=== PATIENT | female | born 1970 | race Caucasian/White ===

== ENCOUNTER 2016-09-10 15:00 | Emergency (ER) | payer OTHER ==
[2016-09-10 15:00] VITALS: BMI 44.2
[2016-09-10 15:04] VITALS: BP 112/78; PULSE 99; RESP 22; TEMP 99.2; O2SAT 98
[2016-09-10] MEDS ORDERED: Sodium Chloride 0.9% 1,000 ML IV ONE (15:15)
[2016-09-10] MEDS ORDERED: Sodium Chloride 0.9% 1,000 ML ONE (15:28)
[2016-09-10] MEDS ORDERED: Albuterol-Ipratrop 3 mg / 0.5 (3 ml) UD ONE ×2 (15:28→15:55)
--- NOTE | 2016-09-10 15:29 | C.PDOC ---
History Of Present Illness 46 year old female presents to the ED with complaints of "not feeling well," productive cough with white sputum, and chest discomfort with cough for the last four days. Patient notes a history of asthma and was seen by PMD and given albuterol, nebulizer, cough medicine, and zithromax with no relief, and still has two days left of antibiotics. She denies any nausea, vomiting, diarrhea, or any other complaints at this time. Time Seen by Provider: 09/10/16 15:22 Chief Complaint (Nursing): Shortness Of Breath History Per: Patient History/Exam Limitations: no limitations Onset/Duration Of Symptoms: Days Current Symptoms Are (Timing): Still Present Initiating Event: Upper Respiratory Illness Associated Symptoms: Productive Cough (white sputum). denies: Fever, Chills, Sweating Past Medical History Reviewed: Historical Data, Nursing Documentation, Vital Signs Vital Signs: Last Vital Signs Temp 99.2 F 09/10/16 15:03 Pulse 99 H 09/10/16 15:03 Resp 22 09/10/16 15:18 BP 112/78 09/10/16 15:03 Pulse Ox 98 09/10/16 16:36 - Medical History PMH: Asthma Surgical History: Denies: Pacemaker - [facility] Procedures IMMOBILIZ/WOUND ATTN NEC (01/11/14) RETROGRADE PYELOGRAM (12/12/13) Family History: States: Unknown Family Hx - Social History Hx Tobacco Use: Yes Hx Alcohol Use: No Hx Substance Use: No - Immunization History Hx Tetanus Toxoid Vaccination: No Hx Influenza Vaccination: No Hx Pneumococcal Vaccination: No Review Of Systems Constitutional: Positive for: Chills, Malaise. Negative for: Fever, Weakness Cardiovascular: Positive for: Other (chest discomfort with cough). Negative for : Chest Pain, Palpitations Respiratory: Positive for: Cough, Pleuritic Pain, Sputum Gastrointestinal: Negative for: Nausea, Vomiting, Abdominal Pain, Diarrhea Neurological: Negative for: Weakness, Headache, Dizziness Physical Exam - Physical Exam Appears: Non-toxic, No Acute Distress Skin: Normal Color, Warm, Dry, No Rash Head: Atraumatic, Normacephalic Eye(s): bilateral: Normal Inspection, EOMI Ear(s): Bilateral: Normal Nose: Normal, No Flaring Oral Mucosa: Moist Throat: Normal, No Erythema, No Exudate, No Drooling Neck: Normal ROM Cardiovascular: Rhythm Regular, No Murmur Respiratory: Normal Breath Sounds, No Accessory Muscle Use, No Rhonchi, Wheezing (mild expiratory ), Other (poor effort) Gastrointestinal/Abdominal: Normal Exam, Soft, No Tenderness, No Distention, No Guarding Extremity: Normal ROM, No Deformity, No Swelling Neurological/Psych: Oriented x3, Normal Speech ED Course And Treatment - Laboratory Results Result Diagrams: 09/10/16 15:44 09/10/16 15:44 Lab Interpretation: No Acute Changes O2 Sat by Pulse Oximetry: 98 Pulse Ox Interpretation: Normal - Radiology CXR: Interpreted by Me, Viewed By Me, Read By Radiologist CXR Interpretation: Yes: No Acute Disease Medical Decision Making Medical Decision Makin y.o female with cough and pleuritic pain for 4 days already taking zithromax. Exam showed mild expiratory wheeze. Labs drawn and patient treated with solu-medrol and duonebs. CXR reviewed showing no acute disease and labs were unremarkable, no leukocytosis and flu was negative. Patient reevaluated and is feeling better. She is not febrile and in no respiratory distress. Lungs clear bilaterally. Patient given follow up instructions. Instructed to return to ER if symptoms worsen or new symptoms arise. Disposition Counseled Patient/Family Regarding: Diagnosis, Need For Followup, Rx Given - Disposition Referrals: [facility] [Outside] [facility] [Outside] Disposition: HOME/ ROUTINE Disposition Time: 16:28 Condition: STABLE Additional Instructions: Your prescriptions were sent to [facility] take prednisone daily and cough medicine as needed Follow up with your primary doctor Prescriptions: Promethazine DM [Phenergan DM Syrup] 5 ml PO Q8 PRN #3 oz PRN Reason: Cough Prednisone 50 mg PO DAILY #5 tablet Instructions: Acute Bronchitis (ED) - POA Present On Arrival: None - Clinical Impression Clinical Impression: Bronchitis
[2016-09-10] MEDS: Albuterol-Ipratrop 3 mg / 0.5 (3 ml) UD IH SCH ×2 (15:43→15:56)
[2016-09-10 15:50] LABS: BASO % 0.3 % (0.0-2.0); EOS % 0.1 % (0.0-4.0); HEMATOCRIT 39.2 % (34.0-47.0); LYMPH # 0.9 K/uL (1.0-4.3); LYMPH % 20.1 % (20.0-40.0); MEAN CELL VOLUME 87.5 fL (81.0-99.0); MEAN CORPUSCULAR HEMOGLOBIN 28.6 pg (27.0-31.0); MEAN CORPUSCULAR HGB CONC 32.7 g/dL (33.0-37.0); MONO # 0.6 K/uL (0.0-0.8); MONO % 12.9 % (0.0-10.0); RED CELL DISTRIBUTION WIDTH 15.1 % (11.5-14.5); WHITE BLOOD COUNT 4.6 K/uL (4.8-10.8)
[2016-09-10 15:55] LABS: CHLORIDE 96 mmol/L (98-107)
[2016-09-10 15:56] LABS: POTASSIUM 3.2 mmol/L (3.6-5.2); SODIUM 137 mmol/L (132-148)
[2016-09-10 15:58] LABS: ALB/GLOB RATIO 1.3 (1.0-2.1); ALKALINE PHOSPHATASE 53 U/L (38-126); AST/SGOT 30 U/L (14-36); BILIRUBIN,TOTAL 0.6 mg/dL (0.2-1.3); BLOOD UREA NITROGEN 15 mg/dL (7-17); CARBON DIOXIDE 29 mmol/L (22-30); GFR AFRICAN-AMERICAN > 60; TOTAL PROTEIN 6.8 g/dL (6.3-8.3)
[2016-09-10 15:59] LABS: ALT/SGPT 20 U/L (9-52); CALCIUM 8.3 mg/dl (8.6-10.4); GLUCOSE,RANDOM 69 mg/dL (65-105)
--- NOTE | 2016-09-10 16:04 | RAD ---
HISTORY: SOB COMPARISON: None available. TECHNIQUE: Chest PA and lateral FINDINGS: Examination limited by habitus. LUNGS: No focal consolidation. Please note that chest x-ray has limited sensitivity for the detection of pulmonary masses. PLEURA: No significant pleural effusion identified. No definite pneumothorax . CARDIOVASCULAR: The cardiomediastinal silhouette appears within normal limits of size. OSSEOUS STRUCTURES: No acute osseous abnormality identified. VISUALIZED UPPER ABDOMEN: Unremarkable. OTHER FINDINGS: None. IMPRESSION: No focal consolidation, significant pleural effusion, or definite pneumothorax identified.
== END 2016-09-10 16:57 | disposition home or self-care (01) ==
LOC: C.ER 15:00
DX: J40 Bronchitis, not specified as acute or chronic (principal)
CPT/HCPCS: 71020; 80053; 83880; 85025; 87804; 96361; 96374; 99284; J2930; J7040

== ENCOUNTER 2016-09-20 07:42 | Day surgery (SDC) | payer OTHER ==
[2016-09-20 08:37] VITALS: BMI 25.0
[2016-09-20] MEDS ORDERED: Propofol 10 mg/ml Inj (20 ML) ONE (09:40)
[2016-09-20] MEDS ORDERED: Pantoprazole 40 mg EC Tab PO STA (09:42)
--- NOTE | 2016-09-20 09:42 | CP.SDSHP ---
Same Day Surgery H & P - History Proposed Procedure: EGD Pre-Op Diagnosis: SEE NOTES - Previous Medical/Surgical History Pulmonary: Asthma, Bronchitis Misc: Other Pain: 4.Moderate Pain - Allergies Allergies: Allergies hepatitis B virus vaccine Allergy (Verified 09/10/16 15:17) latex Allergy (Verified 09/10/16 15:17) cigarrettes Allergy (Intermediate, Uncoded 09/10/16 15:17) CONGESTION CHICKEN Allergy (Uncoded 09/10/16 15:17) RASH flu vaccine Allergy (Uncoded 09/10/16 15:17) TOMATOES Allergy (Uncoded 09/10/16 15:17) RASH - Physical Exam General Appearance: N Vital Signs: Vital Signs 09/20/16 08:49 Temperature 98.2 F Pulse Rate 80 Respiratory 17 Rate Blood Pressure 112/73 O2 Sat by Pulse 98 Oximetry Mental Status: Alert & Oriented x3 Neuro: WNL Heart: WNL Lungs: Other GI: WNL - {Optional Preform as Required} Breast: WNL Abdomen: Other Rectal: Other Integument: WNL : WNL Ortho: Other ENT: WNL - Impression Pt. Evaluated Today:Candidate for Anesthesia & Procedure: Yes - Date & Time Time: 09:42 Short Stay Discharge - Short Stay Discharge Admitting Diagnosis/Reason for Visit: FUNCTIONAL DYSPEPSIA Disposition: HOME/ ROUTINE
[2016-09-20 10:32] VITALS: RESP 12; TEMP 97.4
[2016-09-20 11:14] VITALS: BP 120/59; PULSE 61; O2SAT 98
== END 2016-09-20 11:13 | disposition home or self-care (01) ==
LOC: C.ENDO 07:42
PROVIDERS: ATTEND Specialist
DX: K21.0 Gastro-esophageal reflux disease with esophagitis (principal); K29.50 Unspecified chronic gastritis without bleeding; K44.9 Diaphragmatic hernia without obstruction or gangrene
CPT/HCPCS: 43239; 84703; 88305; 88342; J2001; J2704

== ENCOUNTER 2016-12-07 12:56 | Emergency (ER) | payer MEDICAID, OTHER ==
[2016-12-07 12:57] VITALS: BMI 25.0
[2016-12-07 13:09] VITALS: BP 105/68; PULSE 74; RESP 16; TEMP 98.2; O2SAT 98
--- NOTE | 2016-12-07 13:11 | C.PDOC ---
History Of Present Illness 46 yr old female presents to the ER stating she was seen yesterday for a itchy rash, was given a prescription but was not able to fill it because she can't afford it. Patient reports of diffuse itchiness. Denies fever, chest pain, sob, weakness or numbness. Time Seen by Provider: 12/07/16 13:10 Chief Complaint (Nursing): Abnormal Skin Integrity History Per: Patient History/Exam Limitations: no limitations Onset/Duration Of Symptoms: Days Past Medical History Reviewed: Historical Data, Nursing Documentation, Vital Signs Vital Signs: Last Vital Signs Temp 98.2 F 12/07/16 13:05 Pulse 74 12/07/16 13:05 Resp 16 12/07/16 13:05 BP 105/68 12/07/16 13:05 Pulse Ox 98 12/07/16 13:26 - Medical History PMH: Asthma - [facility] Procedures IMMOBILIZ/WOUND ATTN NEC (01/11/14) RETROGRADE PYELOGRAM (12/12/13) Family History: States: No Known Family Hx - Social History Hx Tobacco Use: Yes Hx Alcohol Use: No Hx Substance Use: No - Immunization History Hx Tetanus Toxoid Vaccination: No Hx Influenza Vaccination: No Hx Pneumococcal Vaccination: No Review Of Systems Except As Marked, All Systems Reviewed And Found Negative. Constitutional: Negative for: Fever Cardiovascular: Negative for: Chest Pain Respiratory: Negative for: Shortness of Breath Skin: Positive for: Rash (Diffuse itchy rash ) Neurological: Negative for: Weakness, Numbness Physical Exam - Physical Exam Appears: Non-toxic, No Acute Distress Skin: Warm, Dry, No Rash, No Ecchymosis Head: Atraumatic, Normacephalic Chest: Symmetrical, No Tenderness Cardiovascular: Rhythm Regular, No Murmur Respiratory: Normal Breath Sounds, No Rales, No Rhonchi, No Stridor, No Wheezing Extremity: Normal ROM, No Swelling Neurological/Psych: Oriented x3, Normal Speech, Normal Motor ED Course And Treatment O2 Sat by Pulse Oximetry: 98 (RA) Pulse Ox Interpretation: Normal Progress Note: Patient was given Rx for benadryl and pepcid. Patient was offered Prednisone in ED but refused, stating it causes insomnia. Medical Decision Making Medical Decision Making: PLAN: * Benadryl PO * Pepcid PO Disposition - Disposition Disposition: HOME/ ROUTINE Disposition Time: 13:22 Condition: STABLE Additional Instructions: Follow up with PMD within 1-2 days. Return to ED if feel worse. Prescriptions: DiphenhydrAMINE [Benadryl] 25 mg PO .Q4-6 H #30 cap Famotidine [Pepcid] 20 mg PO BID #20 tab Instructions: Itchy Skin (ED) - Clinical Impression Clinical Impression: Generalized pruritus - PA / BOOKY / Resident Statement MD/DO has reviewed & agrees with the documentation as recorded. - Scribe Statement The provider has reviewed the documentation as recorded by the Scribe Tiesha Orlando All medical record entries made by the Aubreyibmaria victoria were at my direction and personally dictated by me. I have reviewed the chart and agree that the record accurately reflects my personal performance of the history, physical exam, medical decision making, and the department course for this patient. I have also personally directed, reviewed, and agree with the discharge instructions and disposition.
== END 2016-12-07 13:31 | disposition home or self-care (01) ==
LOC: C.ER 12:56
DX: L29.8 Other pruritus (principal)

== ENCOUNTER 2016-12-21 14:26 | Emergency (ER) | payer MEDICAID, OTHER ==
[2016-12-21 14:27] VITALS: BMI 25.0
[2016-12-21 14:34] VITALS: RESP 18; TEMP 98.2
--- NOTE | 2016-12-21 15:29 | RAD ---
PROCEDURE: Left Foot Radiographs. HISTORY: great toe injury, pain to 1st metatarsal COMPARISON: None. FINDINGS: BONES: There is no acute displaced fracture or bone destruction. Bone alignment and mineralization are normal. There is a prominent plantar calcaneal spur. JOINTS: Normal. SOFT TISSUES: Normal. OTHER FINDINGS: None. IMPRESSION: No acute fracture or dislocation.
--- NOTE | 2016-12-21 16:10 | C.PDOC ---
History Of Present Illness 46 yr old female presents to the ER stating she was walking up the stairs and missed a step, banging her left great toe 4 days ago. Patient states she is able to walk but the pain continues. Patient denies leg pain, back pain, weakness or numbness. Time Seen by Provider: 12/21/16 14:52 Chief Complaint (Nursing): Lower Extremity Problem/Injury History Per: Patient History/Exam Limitations: no limitations Onset/Duration Of Symptoms: Days (4) Current Symptoms Are (Timing): Still Present Past Medical History Reviewed: Historical Data, Nursing Documentation, Vital Signs Vital Signs: Last Vital Signs Temp 98.2 F 12/21/16 14:33 Pulse 68 12/21/16 16:25 Resp 18 12/21/16 16:25 BP 115/76 12/21/16 16:25 Pulse Ox 97 12/21/16 16:25 - Medical History PMH: Asthma - [facility] Procedures IMMOBILIZ/WOUND ATTN NEC (01/11/14) RETROGRADE PYELOGRAM (12/12/13) Family History: States: No Known Family Hx - Social History Hx Tobacco Use: Yes Hx Alcohol Use: No Hx Substance Use: No - Immunization History Hx Tetanus Toxoid Vaccination: No Hx Influenza Vaccination: No Hx Pneumococcal Vaccination: No Review Of Systems Except As Marked, All Systems Reviewed And Found Negative. Musculoskeletal: Positive for: Other ((+) Left great toe pain ). Negative for: Leg Pain, Foot Pain Neurological: Negative for: Weakness, Numbness Physical Exam - Physical Exam Appears: Non-toxic, No Acute Distress Skin: Warm, Dry, No Rash Head: Atraumatic, Normacephalic Extremity: Normal ROM, Tenderness (Left Great Toe - Tenderness to the planter aspect and mild tender planter aspect of first metatarsel region. ), No Calf Tenderness, Capillary Refill (<2), No Swelling Pulses: Left Dorsalis Pedis: Normal, Right Dorsalis Pedis: Normal Neurological/Psych: Oriented x3, Normal Speech, Normal Motor, Normal Sensation Gait: Steady ED Course And Treatment O2 Sat by Pulse Oximetry: 100 (RA ) Pulse Ox Interpretation: Normal - Other Rad X-Ray - Left Foot X-Ray: Viewed By Me, Read By Radiologist Interpretation: PROCEDURE: Left Foot Radiographs. HISTORY: great toe injury, pain to 1st metatarsal. COMPARISON: None. FINDINGS: BONES: There is no acute displaced fracture or bone destruction. Bone alignment and mineralization are normal. There is a prominent plantar calcaneal spur. JOINTS : Normal. SOFT TISSUES: Normal. OTHER FINDINGS: None. IMPRESSION: No acute fracture or dislocation. Medical Decision Making Medical Decision Making: PLAN: * X-Ray - Left Foot * Tylenol PO Xray of the foot is negative. The patient reports that her Soap Mixer is Dr. Duff and will follow up this week. Case was discussed with Podiatry resident who agrees with plan to discharge the patient with outpatient follow up. Patient was offered Ortho shoe but refuses. Disposition - Disposition Referrals: Benny Duff DPM [Staff Provider] - Disposition: HOME/ ROUTINE Disposition Time: 16:07 Condition: GOOD Additional Instructions: Follow up with the medical doctor within 1-2 days. Return if worsened. Prescriptions: Naproxen [Naprosyn] 500 mg PO BID #20 tab Instructions: Foot Contusion (ED) Forms: [employer] (Irish) - Clinical Impression Clinical Impression: Toe contusion - PA / LUMBER INSPECTOR / Resident Statement MD/DO has reviewed & agrees with the documentation as recorded. - Scribe Statement The provider has reviewed the documentation as recorded by the Scribe Tiesha Orlando All medical record entries made by the Scribe were at my direction and personally dictated by me. I have reviewed the chart and agree that the record accurately reflects my personal performance of the history, physical exam, medical decision making, and the department course for this patient. I have also personally directed, reviewed, and agree with the discharge instructions and disposition.
[2016-12-21 16:27] VITALS: BP 115/76; PULSE 68
[2016-12-21 22:56] VITALS: O2SAT 100
== END 2016-12-21 16:27 | disposition home or self-care (01) ==
LOC: C.ER 14:26
DX: S90.112A Contusion of left great toe without damage to nail, initial encounter (principal); X58.XXXA Exposure to other specified factors, initial encounter; Y92.89 Other specified places as the place of occurrence of the external cause

== ENCOUNTER 2017-10-17 15:58 | Emergency (ER) | payer OTHER ==
[2017-10-17 15:59] VITALS: BMI 25.0
[2017-10-17 16:18] VITALS: PULSE 62; RESP 18; TEMP 98.2; O2SAT 100
--- NOTE | 2017-10-17 17:07 | RAD ---
PROCEDURE: Left Hand Radiographs. HISTORY: r/o fracture COMPARISON: None. FINDINGS: BONES: Bone alignment and mineralization are normal. There is no acute displaced fracture or bone destruction. JOINTS: Normal. SOFT TISSUES: Normal. OTHER FINDINGS: None. IMPRESSION: No acute fracture or dislocation.
[2017-10-17 17:46] VITALS: BP 101/66
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
== END 2017-10-17 18:06 | disposition home or self-care (01) ==
LOC: C.ER 15:58
DX: S60.222A Contusion of left hand, initial encounter (principal); Y04.0XXA Assault by unarmed brawl or fight, initial encounter; Z72.0 Tobacco use